=== PATIENT | female | born 2000 | race Caucasian/White ===

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

== ENCOUNTER 2018-02-22 07:11 | Emergency (ER) | payer BC, OTHER, MEDICAID ==
[2018-02-22] MEDS: NS 500 ML IV (07:45)
[2018-02-22] MEDS: METOCLOPRAMIDE INJ 10MG/2ML VIAL (J2765) IV (07:59)
[2018-02-22] MEDS: KETOROLAC 30 MG/ML VIAL (J1885) IV (07:59)
== END 2018-02-22 08:56 | disposition home or self-care (01) ==
LOC: M ED 07:11
DX: G43.109 Migraine with aura, not intractable, without status migrainosus (principal); Z79.3 Long term (current) use of hormonal contraceptives
CPT/HCPCS: J1885

== ENCOUNTER 2018-07-21 20:20 | Emergency (ER) | payer BC, OTHER, MEDICAID ==
[2018-07-21] MEDS: NORCO, ANEXSIA 5/325MG TABLET (HYDROcodone/ACETAMINOPHEN) PO (21:57)
== END 2018-07-21 23:20 | disposition home or self-care (01) ==
LOC: M ED 20:20
DX: M54.9 Dorsalgia, unspecified (principal); V86.69XA Passenger of other special all-terrain or other off-road motor vehicle injured in nontraffic accident, initial encounter
CPT/HCPCS: 70450

== ENCOUNTER 2018-09-07 22:00 | Emergency (ER) | payer BC, OTHER, MEDICAID ==
[2018-09-07 23:42] LABS: BASO # 0.1 10^3/uL (0.0-0.2); BASO % 0.5 % (0.0-1.0); EOS # 0.1 10^3/uL (0.0-0.50); EOS % 1.3 % (0.0-3.0); HEMATOCRIT 41.1 % (36.0-47.0); HEMOGLOBIN 12.3 g/dl (12.0-15.5); IMMATURE GRANULOCYTE % 0.5 % (0-3.0); LYMPH # 2.2 10^3/uL (1.5-6.5); LYMPH % 23.5 % (24.0-44.0); MEAN CORPUSCULAR HEMOGLOBIN 20.4 pg (27.0-33.0); MEAN CORPUSCULAR HGB CONC 29.9 g/dl (32.0-36.5); MEAN CORPUSCULAR VOLUME 68.3 fl (80.0-96.0); NEUTROPHILS # 5.8 10^3/uL (1.8-7.7); NEUTROPHILS % 63.2 % (36.0-66.0); PLATELET COUNT, AUTOMATED 326 10^3/uL (150-450); RED BLOOD COUNT 6.02 10^6/uL (4.00-5.40); RED CELL DISTRIBUTION WIDTH 19.4 % (11.5-14.5); WHITE BLOOD COUNT 9.2 10^3/uL (4.0-10.0)
[2018-09-08 00:04] LABS: ERYTHROCYTE SEDIMENTATION RATE 2 mm/hr (0-20)
[2018-09-08 00:17] LABS: ALBUMIN 4.1 GM/DL (3.2-5.2); ALBUMIN/GLOBULIN RATIO 1.14 (1.00-1.93); ALKALINE PHOSPHATASE 75 U/L (45-117); ALT/SGPT 15 U/L (12-78); ANION GAP 10 MEQ/L (8-16); AST/SGOT 10 U/L (7-37); BILIRUBIN,TOTAL 0.7 MG/DL (0.2-1.0); BLOOD UREA NITROGEN 12 MG/DL (7-18); C REACTIVE PROTEIN QUANTITATIV < 0.30 MG/DL (0.00-0.30); CALCIUM LEVEL 8.5 MG/DL (8.5-10.1); CARBON DIOXIDE LEVEL 24 MEQ/L (21-32); CHLORIDE LEVEL 108 MEQ/L (98-107); CREATININE FOR GFR 0.91 MG/DL (0.55-1.30); GLUCOSE, FASTING 85 MG/DL (70-100); POTASSIUM SERUM 3.5 MEQ/L (3.5-5.1); SODIUM LEVEL 142 MEQ/L (136-145); TOTAL PROTEIN 7.7 GM/DL (6.4-8.2)
[2018-09-08 00:33] LABS: D-DIMER QUANT 656.3 ng/ml (<500)
[2018-09-08] MEDS ORDERED: ISOVUE-370 76% 100ML VIAL (Q9967) As Ordered ×2 (00:50)
[2018-09-08] MEDS: IBUPROFEN 800 MG TAB PO ×2 (02:39)
== END 2018-09-08 02:51 | disposition home or self-care (01) ==
LOC: M ED 09-08 02:51
DX: R07.89 Other chest pain (principal); I45.19 Other right bundle-branch block; G43.909 Migraine, unspecified, not intractable, without status migrainosus; F17.220 Nicotine dependence, chewing tobacco, uncomplicated; Z79.3 Long term (current) use of hormonal contraceptives
CPT/HCPCS: Q9967

== ENCOUNTER → 2018-12-24 | Outpatient (REF) | payer OTHER ==
[~2018-12-24] MED LIST changes: -ACET50TA PO; +AMOX500C PO; +EXCETAB80 PO; +KETO10TAB PO; +MAPA500T2 PO; +NEXP1IMP SC; +REGL10TA6 PO
[2018-12-24 22:28] LABS: CHLAMYDIA DNA AMPLIFICATION NEGATIVE (NEGATIVE); GC DNA AMPLIFICATION NEGATIVE (NEGATIVE)
[2018-12-25 11:04] LABS: HIV 1&2 SCREEN CENTAUR NEGATIVE (NEGATIVE)
== END ==
LOC: M SFHCWAGY 14:26
PROVIDERS: ATTEND Nurse Practitioner Women's Health
DX: Z11.3 Encounter for screening for infections with a predominantly sexual mode of transmission (principal); Z11.4 Encounter for screening for human immunodeficiency virus [HIV]

== ENCOUNTER → 2019-04-09 | Outpatient (REF) | payer OTHER ==
[2019-04-09 19:59] LABS: BASO # 0.1 10^3/uL (0.0-0.2); BASO % 0.6 % (0.0-1.0); EOS # 0.1 10^3/uL (0.0-0.50); EOS % 0.9 % (0.0-3.0); HEMATOCRIT 39.2 % (36.0-47.0); HEMOGLOBIN 12.2 g/dl (12.0-15.5); LYMPH # 2.8 10^3/uL (1.5-6.5); LYMPH % 20.5 % (24.0-44.0); MEAN CORPUSCULAR HEMOGLOBIN 23.1 pg (27.0-33.0); MEAN CORPUSCULAR HGB CONC 31.1 g/dl (32.0-36.5); MEAN CORPUSCULAR VOLUME 74.4 fl (80.0-96.0); NEUTROPHILS # 9.8 10^3/uL (1.8-7.7); NEUTROPHILS % 70.4 % (36.0-66.0); PLATELET COUNT, AUTOMATED 320 10^3/uL (150-450); RED BLOOD COUNT 5.27 10^6/uL (4.00-5.40); WHITE BLOOD COUNT 13.9 10^3/uL (4.0-10.0)
[2019-04-09 20:30] LABS: ALBUMIN 4.3 GM/DL (3.2-5.2); ALT/SGPT 12 U/L (12-78); AMYLASE 54 U/L (25-115); BILIRUBIN,TOTAL 0.5 MG/DL (0.2-1.0); BLOOD UREA NITROGEN 12 MG/DL (7-18); CALCIUM LEVEL 9.2 MG/DL (8.5-10.1); CARBON DIOXIDE LEVEL 26 MEQ/L (21-32); CHLORIDE LEVEL 105 MEQ/L (98-107); CREATININE FOR GFR 0.72 MG/DL (0.55-1.30); GLOMERULAR FILTRATION RATE > 60.0 (>60); GLUCOSE, FASTING 83 MG/DL (70-100); LIPASE 145 U/L (73-393); POTASSIUM SERUM 3.5 MEQ/L (3.5-5.1); SODIUM LEVEL 140 MEQ/L (136-145); TOTAL PROTEIN 7.4 GM/DL (6.4-8.2)
== END ==
LOC: M LABDRWAD 19:22
PROVIDERS: ATTEND Physician Assistant Medical
DX: R10.9 Unspecified abdominal pain (principal)

== ENCOUNTER → 2019-04-09 | Outpatient (REF) | payer OTHER ==
[2019-06-12 13:13] LABS: MONO SCRN NEGATIVE (NEGATIVE)
[2019-06-12 13:14] LABS: C REACTIVE PROTEIN QUANTITATIV < 0.30 MG/DL (0.00-0.30)
== END ==
LOC: M LAB REF 14:44
PROVIDERS: ATTEND Physician Assistant Medical
DX: R10.9 Unspecified abdominal pain (principal)

== ENCOUNTER → 2019-04-10 | Outpatient (CLI) | payer BC, OTHER ==
[~2019-04-10] MED LIST changes: +ISOVUE-370 76% 100ML VIAL (Q9967) As Ordered ONE
--- NOTE | 2019-04-10 17:25 | REP ---
Clinical: Abdominal pain. Technique: Axial contrast enhanced images from the lung bases to the pubic symphysis using 100 ml Isovue 370 intravenous contrast material with coronal and sagittal re-formations. Findings: Lung bases are clear. Visualized heart and pericardium normal. Liver, spleen, pancreas, gallbladder, bilateral adrenal glands and kidneys are normal. The enteric system is without obstruction or acute inflammatory process. Appendicolith identified within otherwise normal appendix. Colonic and sigmoid diverticulosis noted without acute diverticulitis. Pelvis demonstrates normal bladder and age-appropriate uterus/adnexa. Small amount of free fluid in the posterior cul-de-sac likely physiologic and related to menstrual cycle. No free air. No adenopathy. Abdominal aorta and vasculature appears normal. Surrounding musculoskeletal structures intact without focal abnormality. Impression: 1. No acute abdominopelvic pathology appreciated. 2. Small amount of free fluid in the pelvis likely physiologic and related to menstrual cycle. Electronically Signed by Waylon Hendricks MD 04/10/2019 05:17 P
== END ==
LOC: M RAD 16:40
PROVIDERS: ATTEND Physician Assistant Medical
DX: R10.9 Unspecified abdominal pain (principal); K57.30 Diverticulosis of large intestine without perforation or abscess without bleeding
CPT/HCPCS: 74177; Q9967

== ENCOUNTER → 2019-07-03 | Outpatient (REF) | payer OTHER ==
[~2019-07-03] MED LIST changes: -ISOVUE-370 76% 100ML VIAL (Q9967) As Ordered ONE
== END ==
LOC: M LAB REF 12:15
PROVIDERS: ATTEND Physician Assistant
DX: N39.0 Urinary tract infection, site not specified (principal)

== ENCOUNTER → 2020-03-25 | Outpatient (CLI) | payer BC, OTHER | LOC: M LABSMTC 10:00 → EEVIPCON 10:00 | PROVIDERS: ATTEND Family Medicine | DX: Z11.59 Encounter for screening for other viral diseases (principal); Z20.828 Contact with and (suspected) exposure to other viral communicable diseases ==

== ENCOUNTER → 2020-04-15 | Outpatient (CLI) | payer BC, OTHER | LOC: M LABSMTC 10:28 | PROVIDERS: ATTEND Family Medicine | DX: Z03.818 Encounter for observation for suspected exposure to other biological agents ruled out (principal); Z11.59 Encounter for screening for other viral diseases | CPT/HCPCS: C9803; U0003 ==

== ENCOUNTER → 2020-06-22 | Outpatient (REF) | payer OTHER ==
[~2020-06-22] MED LIST changes: +BUTACAP78
[2020-08-07 09:41] LABS: FOLLICLE STIMULATING HORMONE 4.4 mIU/mL; FREE T4 0.92 NG/DL (0.76-1.46); THYROID STIMULATING HORMONE 3.34 uIU/ML (0.358-3.740)
== END ==
LOC: M SFHCWAGY 15:35
PROVIDERS: ATTEND Nurse Practitioner Women's Health
DX: N97.9 Female infertility, unspecified (principal)

== ENCOUNTER → 2020-08-06 | Outpatient (REF) | payer OTHER, MEDICAID ==
[2020-08-06 17:30] LABS: HEMATOCRIT 42.6 % (36.0-47.0); MEAN CORPUSCULAR HEMOGLOBIN 26.1 pg (27.0-33.0); MEAN CORPUSCULAR HGB CONC 32.9 g/dl (32.0-36.5); MEAN CORPUSCULAR VOLUME 79.3 fl (80.0-96.0); PLATELET COUNT, AUTOMATED 344 10^3/uL (150-450); RED BLOOD COUNT 5.37 10^6/uL (4.00-5.40); WHITE BLOOD COUNT 13.2 10^3/uL (4.0-10.0)
[2020-08-06 18:25] LABS: HCG, SERUM QUANTITATIVE 30661 MIU/ML; HEPATITIS C VIRUS ABY INDEX 0.2 INDEX (<0.8); HIV 1&2 SCREEN CENTAUR NEGATIVE (NEGATIVE)
== END ==
LOC: M LAB REF 16:24
PROVIDERS: ATTEND Advanced Practice Midwife
DX: Z32.01 Encounter for pregnancy test, result positive (principal); Z36.89 Encounter for other specified antenatal screening

== ENCOUNTER 2020-09-13 12:50 | Emergency (ER) | payer BC, OTHER, MEDICAID ==
[~2020-09-13] VITALS: Ht 162.6 cm; Wt 54.3 kg
[~2020-09-13 12:50] MED LIST changes: -BUTACAP78
[2020-09-13] MEDS ORDERED: BUTACAP78 (12:57)
[2020-09-13] MEDS ORDERED: NS 1,000 ML IV ONE (14:30)
[2020-09-13 14:52] LABS: BASO # 0.1 10^3/uL (0.0-0.2); BASO % 0.3 % (0.0-1.0); EOS % 0.1 % (0.0-3.0); HEMATOCRIT 39.8 % (36.0-47.0); HEMOGLOBIN 12.9 g/dl (12.0-15.5); LYMPH # 0.9 10^3/uL (1.5-5.0); LYMPH % 5.6 % (24.0-44.0); MEAN CORPUSCULAR HEMOGLOBIN 25.3 pg (27.0-33.0); MEAN CORPUSCULAR HGB CONC 32.4 g/dl (32.0-36.5); MONO # 0.7 10^3/uL (0.0-0.8); MONO % 4.2 % (0.0-5.0); NEUTROPHILS # 14.3 10^3/uL (1.5-8.5); NEUTROPHILS % 88.6 % (36.0-66.0); PLATELET COUNT, AUTOMATED 267 10^3/uL (150-450); WHITE BLOOD COUNT 16.2 10^3/uL (4.0-10.0)
[2020-09-13 15:37] LABS: ALBUMIN 3.6 GM/DL (3.2-5.2); ALT/SGPT 11 U/L (12-78); BILIRUBIN,DIRECT 0.1 MG/DL (0.0-0.2); BILIRUBIN,TOTAL 0.5 MG/DL (0.2-1.0); BLOOD UREA NITROGEN 9 MG/DL (7-18); CALCIUM LEVEL 9.1 MG/DL (8.5-10.1); CARBON DIOXIDE LEVEL 23 MEQ/L (21-32); CHLORIDE LEVEL 109 MEQ/L (98-107); CREATININE FOR GFR 0.68 MG/DL (0.55-1.30); GLOMERULAR FILTRATION RATE > 60.0 (>60); GLUCOSE, FASTING 87 MG/DL (70-100); HCG, SERUM QUANTITATIVE 58733 MIU/ML; LIPASE 106 U/L (73-393); POTASSIUM SERUM 3.5 MEQ/L (3.5-5.1); SODIUM LEVEL 139 MEQ/L (136-145); TOTAL PROTEIN 7.1 GM/DL (6.4-8.2)
[2020-09-13 17:10] LABS: APPEARANCE, URINE CLEAR (CLEAR); BACTERIA, URINE AUTO NEGATIVE (NEGATIVE); BILIRUBIN, URINE AUTO NEGATIVE (NEGATIVE); BLOOD, URINE BLOOD NEGATIVE (NEGATIVE); COLOR, URINE STRAW (YELLOW); GLUCOSE, URINE (UA) AUTO NEGATIVE (NEGATIVE); KETONE, URINE AUTO 2+ mg/dL (NEGATIVE); LEUKOCYTE ESTERASE, URINE AUTO NEGATIVE (NEGATIVE); NITRITE, URINE AUTO NEGATIVE (NEGATIVE); PROTEIN, URINE AUTO NEGATIVE (NEGATIVE); RBC, URINE AUTO 1 /HPF (0-3); SQUAMOUS EPITHELIAL CELL UR AU 2 /HPF (0-6); UROBILINOGEN, URINE AUTO 0.2 mg/dL (0.0-2.0); WBC, URINE AUTO 1 /HPF (0-3)
--- NOTE | 2020-09-13 19:02 | REPVR ---
PROCEDURE INFORMATION: Exam: MR Head Without Contrast Exam date and time: 09/13/2020 6:54 PM Age: 20 years old Clinical indication: Other: Severe headache, right sided numbness, tingling; Patient HX: 11wks TECHNIQUE: Imaging protocol: MR of the head without contrast. COMPARISON: CT Head without contrast 07/21/2018 9:51 PM FINDINGS: Brain: There is no acute intracranial hemorrhage, cerebral edema, or midline shift. No restricted diffusion is present to suggest acute infarction. Cerebral ventricles: No hydrocephalus. Bones/joints: Unremarkable. Paranasal sinuses: Normal as visualized. No acute sinusitis. Mastoid air cells: Normal as visualized. No mastoid effusion. Orbits: Unremarkable. Soft tissues: Unremarkable. IMPRESSION: No acute findings. Electronically signed by: Obey Rice On 09/13/2020 19:01:55 PM
[2020-09-13 19:31] LABS: C REACTIVE PROTEIN QUANTITATIV 0.35 MG/DL (0.00-0.30)
[2020-09-13 19:49] LABS: ERYTHROCYTE SEDIMENTATION RATE 3 mm/hr (0-20)
[2020-09-13 20:09] VITALS: BP 92/62
== END 2020-09-13 20:17 | disposition home or self-care (01) ==
LOC: M ED 12:50
DX: O99.351 Diseases of the nervous system complicating pregnancy, first trimester (principal); G43.909 Migraine, unspecified, not intractable, without status migrainosus; Z3A.11 11 weeks gestation of pregnancy; O99.331 Smoking (tobacco) complicating pregnancy, first trimester; F17.220 Nicotine dependence, chewing tobacco, uncomplicated

== ENCOUNTER → 2020-11-04 | Outpatient (CLI) | payer BC, MEDICAID ==
[~2020-11-04] MED LIST changes: +BUTACAP78
--- NOTE | 2020-11-04 12:39 | REP ---
INDICATION: ANATOMY. COMPARISON: None. TECHNIQUE: Multiple transabdominal ultrasonographic images of the gravid uterus. FINDINGS: There is a single intrauterine gestation in a transverse lie with head to the maternal left. The placenta is fundal and right lateral. There is no placenta previa. The placenta is grade 0 maturity. The placental cord insertion is located centrally on the placenta. The cord insertion is unremarkable. There is a three-vessel umbilical cord. heart rate is 165 beats per minute. Subjectively the amniotic fluid volume is normal. The composite ultrasound gestational age today is 18 weeks 5 days. The IVETH is 04/02/2021. Gestational age by LMP is 18 weeks 6 days with an IVETH of 04/01/2021. weight is 257 g, 0 lb-9 oz. This is the 38th percentile for 18 weeks 6 days. The following anatomic structures are identified and are unremarkable: Cranium, cavum septum pellucidum, falx, intracranial ventricles, choroid plexus, cerebellum, cisterna magna, facial profile, upper lip, four-chamber heart, right and left cardiac ventricular outflow tracts, diaphragm, stomach, right and left kidneys, bladder, right and left upper extremities, right left lower extremities and 3 vessel cord. Suboptimally demonstrated because of position is the spine. A follow-up study dedicated to this structure might be considered. IMPRESSION: anatomy as discussed above. Follow-up study of the spine might be considered. <Electronically signed by Brandon Holguin > 11/04/20 [id number]
== END ==
LOC: M WHC 09:54
PROVIDERS: ATTEND Specialist
DX: Z34.82 Encounter for supervision of other normal pregnancy, second trimester (principal); Z3A.18 18 weeks gestation of pregnancy

== ENCOUNTER → 2020-12-03 | Outpatient (CLI) | payer BC, MEDICAID ==
--- NOTE | 2020-12-05 08:34 | REP ---
INDICATION: F/U ANATOMY COMPARISON: 11/04/2020 TECHNIQUE: Transabdominal obstetrical ultrasound with color Doppler evaluation. FINDINGS: Examination demonstrates a single live intrauterine in transverse presentation. motion is identified by technologist. Placenta is noted anterior and grade 2 without evidence for placenta previa or abruption. Amniotic fluid volume is normal. Cervix measures 3.9 cm in length and appears closed.. Gestational age by LMP 23 weeks 0 days with IVETH 04/01/2021. Gestational age by current measurements 23 weeks 2 days with IVETH 03/30/2021. FHR equals 150 beats per minute. Estimated weight 558 grams (45thpercentile). Anatomical assessment demonstrates normal structures including spine images. A small amount of pericardial fluid is suggested adjacent to the right ventricle which may warrant follow-up. Four-chamber heart views are otherwise normal in appearance. IMPRESSION: 1. Single live intrauterine in transverse lie demonstrating appropriate interval growth. 2. Images of the spine are normal. 3. Cannot exclude very small pericardial effusion adjacent to the right cardiac ventricle. <Electronically signed by Waylon Hendricks > 12/05/20 [id number]
== END ==
LOC: M WHC 11:19
PROVIDERS: ATTEND Obstetrics & Gynecology
DX: Z34.92 Encounter for supervision of normal pregnancy, unspecified, second trimester (principal); Z3A.23 23 weeks gestation of pregnancy

== ENCOUNTER → 2021-01-06 | Outpatient (REF) | payer OTHER, MEDICAID ==
[2021-01-06 15:33] LABS: HEMATOCRIT 38.9 % (36.0-47.0); MEAN CORPUSCULAR HEMOGLOBIN 22.8 pg (27.0-33.0); MEAN CORPUSCULAR HGB CONC 30.8 g/dl (32.0-36.5); MEAN CORPUSCULAR VOLUME 73.8 fl (80.0-96.0); PLATELET COUNT, AUTOMATED 267 10^3/uL (150-450); RED BLOOD COUNT 5.27 10^6/uL (4.00-5.40)
== END ==
LOC: M PLALAB 12:29
PROVIDERS: ATTEND Obstetrics & Gynecology
DX: Z34.82 Encounter for supervision of other normal pregnancy, second trimester (principal); Z3A.00 Weeks of gestation of pregnancy not specified

== ENCOUNTER → 2021-01-07 | Outpatient (CLI) | payer BC, MEDICAID ==
--- NOTE | 2021-01-07 13:11 | REP ---
INDICATION: F/U ANATOMY. COMPARISON: Comparison sonography 03 December 2020.. TECHNIQUE: Transabdominal obstetric sonography. FINDINGS: Scanning through the gravid uterus demonstrates a viable single intrauterine gestation in cephalic lie. motion is observed and heart rate is recorded at 142 beats per minute. A anterior placenta is seen, grade 1, without evidence of placenta previa. Closed cervical length is measured at 3.1 cm transabdominally. No extrauterine abnormality is observed. Amniotic fluid is subjectively normal. A trace of pericardial fluid adjacent to the right ventricle is still seen. The following additional anatomic structures are identified today and felt to be unremarkable: cranium, intracranial contents, face and profile nose and lips, diaphragm, left-sided stomach, kidneys and bladder, spine, three-vessel cord.. Biometry chart: BPD 7.0 cm, 28 weeks 2 days Head circumference 26.4 cm quite Jessica 28 weeks 5 days Abdominal circumference 24.4 cm, 28 weeks 5 days Femur length 5.4 cm, 28 weeks 4 days Humeral length 4.8 cm, 28 weeks 3 days HC AC ratio normal 1.08 Cephalic index normal 0.73 Estimated weight 1256 g, 2 lb 12 oz, 61st percentile for 28 weeks 0 days ABA normal 18.0 cm IMPRESSION: Viable single intrauterine gestation at 28 weeks 4 days by today's composite sonographic criteria. IVETH by today's sonography March 28, 2021. No complication identified. Expected gestational age estimate based on prior sonography is 28 weeks 0 days. IVETH by prior sonography April 01, 2021. A small sliver of fluid is seen in the pericardium. <Electronically signed by Abelardo Pryor > 01/07/21 [id number]
== END ==
LOC: M WHC 08:46
PROVIDERS: ATTEND Obstetrics & Gynecology
DX: Z36.9 Encounter for antenatal screening, unspecified (principal); Z3A.28 28 weeks gestation of pregnancy

== ENCOUNTER → 2021-01-19 | Outpatient (CLI) | payer BC, OTHER, MEDICAID | LOC: M LAB 08:33 | PROVIDERS: ATTEND Specialist | DX: Z34.82 Encounter for supervision of other normal pregnancy, second trimester (principal); Z3A.00 Weeks of gestation of pregnancy not specified ==

== ENCOUNTER → 2021-02-21 | Outpatient (CLI) | payer BC, MEDICAID ==
--- NOTE | 2021-02-21 08:58 | REP ---
INDICATION: F/U ANATOMY COMPARISON: 01/07/2021 TECHNIQUE: Transabdominal obstetrical ultrasound with color Doppler evaluation. FINDINGS: Examination demonstrates a single live intrauterine in cephalic presentation. motion is identified by technologist. Placenta is noted anterior and grade 2 without evidence for placenta previa or abruption. Amniotic fluid volume is normal. Cervix measures 3.5 cm in length and appears closed.. Gestational age by LMP and 1st ultrasound 34 weeks 3 days with IVETH 04/01/2021. Gestational age by current measurements 34 weeks 3 days with IVETH 04/01/2021. FHR equals 132 beats per minute. ABA: 10.2 cm (8.0-24.8) Estimated weight 2418 grams (45thpercentile). Anatomical assessment demonstrates normal structures including evaluation of the heart is again limited due to positioning and a trace amount of pericardial fluid is again suggested. IMPRESSION: Single live intrauterine demonstrating appropriate estimated weight and growth. Limited evaluation of the heart. Small amount of pericardial fluid essentially unchanged. <Electronically signed by Waylon Hendricks > 02/21/21 0822
== END ==
LOC: M WHC 06:52
PROVIDERS: ATTEND Specialist
DX: Z34.83 Encounter for supervision of other normal pregnancy, third trimester (principal); Z3A.34 34 weeks gestation of pregnancy

== ENCOUNTER → 2021-03-01 | Outpatient (REF) | payer OTHER, MEDICAID ==
[~2021-03-01] MED LIST changes: -DIBU10OI TOP; +DIBU28OI2 TOP
== END ==
LOC: M SFHCWAGY 12:42
PROVIDERS: ATTEND Obstetrics & Gynecology
DX: Z87.59 Personal history of other complications of pregnancy, childbirth and the puerperium (principal)

== ENCOUNTER → 2021-03-20 | Outpatient (CLI) | payer BC, OTHER, MEDICAID | LOC: M LABSMTC 08:02 | PROVIDERS: ATTEND Anesthesiology | DX: Z01.812 Encounter for preprocedural laboratory examination (principal); Z11.52 Encounter for screening for COVID-19 ==

== ENCOUNTER 2021-03-25 05:30 | Inpatient (IN) | payer BC, OTHER, MEDICAID ==
[2021-03-25] VITALS (9 sets, daily range): BP systolic 101–122; BP diastolic 55–80
[~2021-03-25] VITALS: Ht 162.6 cm; Wt 66.5 kg
[2021-03-25] MEDS ORDERED: BICITRA 30ML SOLN UDC PO ONE (06:00)
[2021-03-25] MEDS ORDERED: ceFAZolin SOD 2 GM in IV 1 EA IV ONE (06:00)
[2021-03-25] MEDS ORDERED: LR 1,000 ML IV SCH ×2 (06:00→09:05)
[2021-03-25] MEDS ORDERED: LR 800 ML IV ONE (06:00)
[2021-03-25 06:51] LABS: HEMATOCRIT 33.4 % (36.0-47.0); HEMOGLOBIN 9.5 g/dl (12.0-15.5); MEAN CORPUSCULAR HGB CONC 28.4 g/dl (32.0-36.5); MEAN CORPUSCULAR VOLUME 66.7 fl (80.0-96.0); PLATELET COUNT, AUTOMATED 269 10^3/uL (150-450); RED BLOOD COUNT 5.01 10^6/uL (4.00-5.40); WHITE BLOOD COUNT 11.9 10^3/uL (4.0-10.0)
[2021-03-25] MEDS ORDERED: MORPHINE PRES-FREE INJ 10 MG/10 ML VIAL (J2274) As Ordered ONE (07:15)
[2021-03-25] MEDS ORDERED: OXYTOCIN INJ 10 UNITS/ML VIAL (J2590) As Ordered ONE (07:16)
[2021-03-25] MEDS ORDERED: diphenhydrAMINE 50MG/ML VIAL (J1200) IV PRN (07:44)
[2021-03-25] MEDS ORDERED: NALOXONE INJ 0.4MG/1ML VIAL (J2310 PER 1MG) IV PRN ×2 (07:44)
[2021-03-25] MEDS ORDERED: NALBUPHINE HCL 10 MG/ML AMP (J2300) IV PRN (07:44)
[2021-03-25] MEDS ORDERED: ONDANSETRON 4MG/2ML VIAL IV PRN ×3 (07:44→09:05)
[2021-03-25] MEDS ORDERED: METOCLOPRAMIDE INJ 10MG/2ML VIAL (J2765 PER 1) IV PRN ×2 (07:44→09:05)
[2021-03-25] MEDS ORDERED: PHENYLephrine 500MCG 5ML (100MCG/ML) SYRINGE As Ordered ONE (08:00)
[2021-03-25] MEDS ORDERED: dexameTHASONE 4 MG/ML 1ML VIAL (J1100 PER 1MG) As Ordered ONE (08:00)
[2021-03-25] MEDS ORDERED: ONDANSETRON 4MG/2ML VIAL As Ordered ONE (08:00)
[2021-03-25] MEDS ORDERED: KETOROLAC 60MG 2ML VIAL As Ordered ONE (08:00)
[2021-03-25] MEDS ORDERED: fentaNYL 100 MCG/2 ML INJECTION (J3010) As Ordered ONE (08:10)
[2021-03-25] MEDS ORDERED: ePHEDrine SULFATE 25 MG/5 ML(5MG/ML) SYRINGE As Ordered ONE (08:24)
[2021-03-25] MEDS ORDERED: RHOGAM 300 MCG (1500 IU) INJ (J2790) IM SCH (08:45)
[2021-03-25] MEDS ORDERED: PERCOCET 5MG/325MG TAB PO PRN ×3 (08:45→09:05)
[2021-03-25] MEDS ORDERED: MEASLES,MUMPS,RUBELLA VACCINE INJ (MMR-II) (90707) SC SCH (08:45)
[2021-03-25] MEDS ORDERED: OXYTOCIN DRIP 30 UNITS in IV 1 EA IV SCH (08:45)
[2021-03-25] MEDS ORDERED: SIMETHICONE 80MG CHEW TAB PO PRN (08:45)
--- NOTE | 2021-03-25 08:48 | ROOPDOC ---
[facility] Report Of Operation Report of Operation DATE OF PROCEDURE: 03/25/21 Report of operation Preoperative diagnosis: 39 weeks, h/o maternal rectal prolapse Postoperative diagnosis: same Procedure: Primary low transverse section Surgeon: Mirella Orozco M.D. Asst.: Marry Reardon CNM EBL: 500 ml. Urine output: 100 mL's. Findings: 7 lbs. 2 oz. female infant, Apgars 9 and 9 g normal uterus, fallopian tubes, ovaries. Operative summary: Patient taken to the operating room where spinal anesthesia was induced. She was prepped and draped in a sterile fashion in the supine position. A Martin catheter was placed. A Pfannenstiel skin incision was made with scalpel. Fascia was incised and extended bilaterally. The peritoneal cavity was entered. A Mobius retractor was placed. A bladder flap was created. A curvilinear incision was made in lower uterine segment until Clear fluid was noted. The incision was extended manually. The was delivered from the vertex position without difficulty. Cord was double clamped and cut. The infant was handed to the awaiting nurses. . The placenta was expressed. Uterus was closed with O-Vicryl in a running locked fashion. A second imbricating layer of Vicryl was placed. Peritoneum was closed with 2-0 Vicryl a running fashion. Fascia was closed with 0 Vicryl in running fashion. Skin was closed 4-0 Monocryl subcuticular sutures. Sponge, instrument and needle counts were correct. Marry Reardon CNM, assisted with all aspects of the procedure. She helped each layer of the incision and deliver the fetus. MIRELLA OROZCO MD March 25, 2021 08:48
[2021-03-25] MEDS ORDERED: fentaNYL 100 MCG/2 ML INJECTION (J3010) IV PRN (09:05)
[2021-03-25] MEDS ORDERED: OXYTOCIN 30 UNITS IN 0.9% NaCl 500ML IV BAG (J2590) As Ordered ONE (09:18)
[2021-03-25] MEDS: PRENATAL VITAMINS CHEWABLE TABLET PO SCH (10:20)
[2021-03-25] MEDS: LR 1,000 ML IV SCH ×2 (13:13→16:45)
[2021-03-25] MEDS: KETOROLAC 30 MG/ML 1ML VIAL IV SCH ×2 (14:28→20:41)
[2021-03-26] MEDS: LR 1,000 ML IV SCH (00:45)
[2021-03-26 02:00] VITALS: BP 96/52
[2021-03-26] MEDS: KETOROLAC 30 MG/ML 1ML VIAL IV SCH (02:20)
[2021-03-26 06:00] VITALS: BP 98/54
[2021-03-26 07:14] LABS: HEMATOCRIT 25.1 % (36.0-47.0); MEAN CORPUSCULAR HEMOGLOBIN 19.7 pg (27.0-33.0); MEAN CORPUSCULAR HGB CONC 29.5 g/dl (32.0-36.5); MEAN CORPUSCULAR VOLUME 66.9 fl (80.0-96.0); PLATELET COUNT, AUTOMATED 200 10^3/uL (150-450); RED BLOOD COUNT 3.75 10^6/uL (4.00-5.40); WHITE BLOOD COUNT 14.1 10^3/uL (4.0-10.0)
[2021-03-26 07:16] LABS: HEMOGLOBIN 7.4 g/dl (12.0-15.5)
--- NOTE | 2021-03-26 07:27 | IPNPDOC ---
Text Note Date of Service The patient was seen on 03/26/21. NOTE PO #1 Feels well, adequate pain management. Voiding VSS, afebrile, normotensive Breasts soft, Fundus firm, NT Dressing intact, old drainage Lochia rubra light without odor PO #1 Routine care. Anticipate D/C in am VS,Fishbone, I+O VS, Fishbone, I+O Laboratory Tests 03/26/21 06:41 Vital Signs Date Time Temp Pulse Resp B/P (MAP) Pulse Ox O2 Delivery O2 Flow Rate FiO2 03/26/21 06:00 99.0 72 16 98/54 (69) 98 Room Air I&O- Last 24 Hours up to 6 AM 03/26/21 06:00 Intake Total 1400 ml Output Total 3350 ml Balance -1950 ml Ekaterina Perez CNM March 26, 2021 07:27
[2021-03-26 10:00] VITALS: BP 105/58
[2021-03-26] MEDS: FERROUS SULFATE 325MG TAB PO SCH ×2 (10:17→20:33)
[2021-03-26] MEDS: PRENATAL VITAMINS CHEWABLE TABLET PO SCH (10:17)
[2021-03-26] MEDS: IBUPROFEN 800 MG TAB PO SCH ×2 (10:18→19:07)
[2021-03-26 14:00] VITALS: BP 136/74
[2021-03-26 18:00] VITALS: BP 123/71
[2021-03-26 22:00] VITALS: BP_SYST 112; BP_SYST 127; BP_DIAS 71; BP_DIAS 79
[2021-03-27 02:00] VITALS: BP 102/56
[2021-03-27] MEDS: IBUPROFEN 800 MG TAB PO SCH ×2 (02:14→10:30)
[2021-03-27 05:52] VITALS: BP 100/59
[2021-03-27] MEDS: FERROUS SULFATE 325MG TAB PO SCH (08:11)
[2021-03-27] MEDS: PRENATAL VITAMINS CHEWABLE TABLET PO SCH (08:11)
--- NOTE | 2021-03-27 08:26 | DS.PDOC ---
Discharge Summary General Date of Admission March 25, 2021 at 05:30 Date of Discharge 03/27/2021 Attending Physician: MIRELLA OROZCO MD Discharge Summary PROCEDURES PERFORMED DURING STAY: 1 spinal anesthesia 2 section. ADMITTING DIAGNOSES: 1. Intrauterine at 39 weeks with history of rectal prolapse. DISCHARGE DIAGNOSES: 1. Primary section. COMPLICATIONS/CHIEF COMPLAINT: Maternal Rectal Prolapse. HISTORY OF PRESENT ILLNESS: This patient presents at 39 weeks gestation for an elective section. She underwent an uncomplicated section productive of a liveborn infant. Estimated blood loss is 500 mL. Patient did well postoperatively by postoperative day #2 had met all discharge criteria is as discharged home in stable condition. DISCHARGE MEDICATIONS: Please see below. ALLERGIES: Please see below. PHYSICAL EXAMINATION ON DISCHARGE: VITAL SIGNS: Please see below. GENERAL: Well-appearing no acute distress ABDOMINAL EXAMINATION: Soft, appropriately tender. Incision was dressed EXTREMITIES: Negative calf tenderness NEUROLOGICAL EXAMINATION: Grossly intact PSYCHIATRIC EXAMINATION: Appropriate LABORATORY DATA: Please see below. ACTIVITY: Pelvic rest for 6 weeks.. DIET: Regular DISCHARGE PLAN: Home DISCHARGE INSTRUCTIONS: 1. Follow-up in 2 weeks for incision check 2. Remove dressing in 5-7 days 3. Reports severe pain heavy vaginal bleeding fever or incisional issues. DISCHARGE CONDITION: Stable. Vital Signs/I&Os Vital Signs Date Time Temp Pulse Resp B/P (MAP) Pulse Ox O2 Delivery O2 Flow Rate FiO2 03/27/21 05:52 98.1 79 16 100/59 (73) 98 Room Air Discharge Medications No Active Prescriptions or Reported Meds Allergies Coded Allergies: No Known Allergies (Unverified , 05/28/16) JORDEN GONZALEZ MD. March 27, 2021 08:25
[2021-03-27] MEDS ORDERED: IBUP80TA PO (08:27)
[2021-03-27] MEDS ORDERED: PERCOCET PO (08:27)
[2021-03-27 09:52] VITALS: BP 124/62
== END 2021-03-27 10:39 | disposition home or self-care (01) | DRG 540 ==
LOC: EEVIPCON 05:30 → M LDI 05:30 → M OBS 10:01
PROVIDERS: ADMIT Specialist; ATTEND Specialist
PROC: 10D00Z1 Extraction of Products of Conception, Low, Open Approach (ICD-10-PCS; principal; 2021-03-25 07:30)
DX: O34.211 Maternal care for low transverse scar from previous cesarean delivery (principal); Z3A.39 39 weeks gestation of pregnancy; Z37.0 Single live birth

== ENCOUNTER 2021-08-19 17:49 | Emergency (ER) | payer BC, OTHER, MEDICAID ==
[~2021-08-19] VITALS: Ht 162.6 cm; Wt 57.5 kg
[~2021-08-19 17:49] MED LIST changes: +IBUP80TA PO; +PERCOCET PO
[2021-08-19 19:09] LABS: BASO # 0.1 10^3/uL (0.0-0.2); BASO % 0.7 % (0.0-1.0); EOS # 0.1 10^3/uL (0.0-0.5); EOS % 1.2 % (0.0-3.0); HEMATOCRIT 38.7 % (36.0-47.0); HEMOGLOBIN 11.9 g/dl (12.0-15.5); LYMPH # 1.8 10^3/uL (1.5-5.0); MEAN CORPUSCULAR HGB CONC 30.7 g/dl (32.0-36.5); MEAN CORPUSCULAR VOLUME 71.4 fl (80.0-96.0); MONO # 0.7 10^3/uL (0.0-0.8); MONO % 9.4 % (2.0-8.0); NEUTROPHILS # 4.7 10^3/uL (1.5-8.5); NEUTROPHILS % 63.3 % (36.0-66.0); PLATELET COUNT, AUTOMATED 343 10^3/uL (150-450); RED BLOOD COUNT 5.42 10^6/uL (4.00-5.40); WHITE BLOOD COUNT 7.4 10^3/uL (4.0-10.0)
[2021-08-19 19:38] LABS: BLOOD UREA NITROGEN 9 MG/DL (7-18); CALCIUM LEVEL 9.1 MG/DL (8.5-10.1); CARBON DIOXIDE LEVEL 25 MEQ/L (21-32); CHLORIDE LEVEL 110 MEQ/L (98-107); CREATININE FOR GFR 0.77 MG/DL (0.55-1.30); GLOMERULAR FILTRATION RATE > 60.0 (>60); GLUCOSE, FASTING 99 MG/DL (70-100); HCG, SERUM QUANTITATIVE 10 MIU/ML; POTASSIUM SERUM 3.5 MEQ/L (3.5-5.1); SODIUM LEVEL 143 MEQ/L (136-145)
[2021-08-19 20:01] VITALS: BP 116/63
== END 2021-08-19 20:01 | disposition home or self-care (01) ==
LOC: M ED 17:49
DX: N93.9 Abnormal uterine and vaginal bleeding, unspecified (principal); F17.220 Nicotine dependence, chewing tobacco, uncomplicated

== ENCOUNTER → 2021-08-22 | Outpatient (CLI) | payer BC, OTHER, MEDICAID | LOC: M PLALAB 12:10 | PROVIDERS: ATTEND Specialist | DX: N93.9 Abnormal uterine and vaginal bleeding, unspecified (principal) ==

== ENCOUNTER → 2022-03-16 | Outpatient (REF) | payer BC, OTHER, MEDICAID | LOC: M LAB REF 09:51 | PROVIDERS: ATTEND Pediatrics | DX: J06.9 Acute upper respiratory infection, unspecified (principal) ==

== ENCOUNTER 2022-05-17 13:50 | Emergency (ER) | payer BC, OTHER ==
[~2022-05-17] VITALS: Ht 162.6 cm; Wt 52.0 kg
[2022-05-17 16:30] VITALS: BP 105/65
== END 2022-05-17 16:32 | disposition home or self-care (01) ==
LOC: M ED 13:50
DX: S00.83XA Contusion of other part of head, initial encounter (principal); V49.49XA Driver injured in collision with other motor vehicles in traffic accident, initial encounter; Y92.410 Unspecified street and highway as the place of occurrence of the external cause; F17.220 Nicotine dependence, chewing tobacco, uncomplicated

== ENCOUNTER → 2022-09-01 | Outpatient (REF) ==
[~2022-09-01] MED LIST changes: +ETON68IM SC; -NEXP1IMP SC
== END ==
LOC: M EMP 09:46
PROVIDERS: ATTEND Family Medicine
DX: Z20.822 Contact with and (suspected) exposure to COVID-19 (principal); Z53.8 Procedure and treatment not carried out for other reasons

== ENCOUNTER → 2022-12-28 | Outpatient (CLI) | payer OTHER ==
[~2022-12-28] MED LIST changes: +AMBI5TAB PO
== END ==
LOC: M WHC 11:51
PROVIDERS: ATTEND Obstetrics & Gynecology
DX: O34.211 Maternal care for low transverse scar from previous cesarean delivery (principal); Z3A.15 15 weeks gestation of pregnancy

== ENCOUNTER 2022-12-29 08:06 | Inpatient (IN) | payer OTHER ==
[2022-12-29] VITALS (10 sets, daily range): BP systolic 110–145; BP diastolic 54–92
[~2022-12-29] VITALS: Ht 162.6 cm; Wt 57.7 kg
[~2022-12-29 08:06] MED LIST changes: -AMBI5TAB PO
[2022-12-29] MEDS ORDERED: RHOGAM 300MCG (1500IU) INJ IM SCH (08:50)
[2022-12-29 09:20] LABS: BASO % 0.3 % (0.0-1.0); EOS # 0.1 10^3/uL (0.0-0.5); EOS % 0.7 % (0.0-3.0); HEMATOCRIT 38.1 % (36.0-47.0); HEMOGLOBIN 11.8 g/dl (12.0-15.5); LYMPH # 1.3 10^3/uL (1.5-5.0); LYMPH % 14.9 % (24.0-44.0); MEAN CORPUSCULAR HEMOGLOBIN 22.8 pg (27.0-33.0); MEAN CORPUSCULAR VOLUME 73.6 fl (80.0-96.0); MONO # 0.5 10^3/uL (0.0-0.8); MONO % 5.4 % (2.0-8.0); NEUTROPHILS # 6.8 10^3/uL (1.5-8.5); NEUTROPHILS % 78.1 % (36.0-66.0); PLATELET COUNT, AUTOMATED 305 10^3/uL (150-450); RED BLOOD COUNT 5.18 10^6/uL (4.00-5.40); WHITE BLOOD COUNT 8.8 10^3/uL (4.0-10.0)
[2022-12-29 09:47] LABS: THYROID STIMULATING HORMONE 2.989 uIU/ML (0.55-4.78); THYROXINE (T4) 12.7 UG/DL (4.5-10.9)
[2022-12-29 09:53] LABS: INR 1.03; PARTIAL THROMBOPLASTIN TIME 24.4 SECONDS (24.8-34.2); PROTHROMBIN TIME 13.7 SECONDS (12.5-14.5)
[2022-12-29] MEDS ORDERED: OXYTOCIN 30UNITS IN 0.9% NaCl 500ML IV BAG As Ordered ONE (18:14)
[2022-12-29] MEDS ORDERED: IBUPROFEN 600MG TAB PO PRN (20:35)
[2022-12-29] MEDS ORDERED: METHYLERGONOVINE MALEATE 0.2MG/ML 1ML VIAL IM ONE (20:35)
[2022-12-29] MEDS ORDERED: ACETAMINOPHEN 500 MG TAB PO PRN (20:35)
[2022-12-29] MEDS ORDERED: KETOROLAC 30 MG/ML 1ML VIAL IV ONE (20:40)
[2022-12-29] MEDS ORDERED: KETOROLAC 30 MG/ML 1ML VIAL As Ordered ONE (20:47)
[2022-12-30] MEDS ORDERED: zolPIDEM TARTRATE 5 MG TAB PO ONE (01:00)
[2022-12-30] MEDS ORDERED: IBUPROFEN 600MG TAB PO PRN (03:00)
[2022-12-30 06:33] VITALS: BP 147/72
[2022-12-30] MEDS ORDERED: AMBI5TAB PO (15:53)
[2023-01-01 16:08] LABS: BETA-2 GLYCOPROTEIN I ABY IGA <9 (0-25); BETA-2 GLYCOPROTEIN I ABY IGG <9 (0-20); BETA-2 GLYCOPROTEIN I ABY IGM <9 (0-32); CARDIOLIPIN IGA ANTIBODY <9 APL U/mL (0-11); CARDIOLIPIN IGG ANTIBODY <9 GPL U/mL (0-14); CARDIOLIPIN IGM ANTIBODY <9 MPL U/mL (0-12)
[2023-01-05 11:26] LABS: DRVV SCREEN 35.6 SEC
[2023-01-05 11:43] LABS: PTT LUPUS TYPE ANTICOAG SCREEN 0.9 (0-1.2)
== END 2022-12-30 10:06 | disposition home or self-care (01) | DRG 805 ==
LOC: M LDI 08:06
PROVIDERS: ADMIT Advanced Practice Midwife; ATTEND Advanced Practice Midwife
PROC: 10E0XZZ Delivery of Products of Conception, External Approach (ICD-10-PCS; principal; 2022-12-30)
DX: O69.1XX0 Labor and delivery complicated by cord around neck, with compression, not applicable or unspecified (principal); Z37.1 Single stillbirth; Q79.3 Gastroschisis; Z3A.20 20 weeks gestation of pregnancy; D18.1 Lymphangioma, any site; O26.899 Other specified pregnancy related conditions, unspecified trimester; O35.10X0 Maternal care for (suspected) chromosomal abnormality in fetus, unspecified, not applicable or unspecified

== ENCOUNTER → 2023-09-07 | Outpatient (CLI) | payer OTHER ==
[~2023-09-07] MED LIST changes: +AMBI5TAB PO
== END ==
LOC: M PLALAB 14:27
PROVIDERS: ATTEND Obstetrics & Gynecology
DX: N97.0 Female infertility associated with anovulation (principal)

== ENCOUNTER → 2024-03-19 | Outpatient (CLI) | payer OTHER ==
[2024-03-19 13:16] LABS: HEMATOCRIT 42.2 % (36.0-47.0); MEAN CORPUSCULAR HEMOGLOBIN 26.2 pg (27.0-33.0); MEAN CORPUSCULAR HGB CONC 33.2 g/dl (32.0-36.5); MEAN CORPUSCULAR VOLUME 78.9 fl (80.0-96.0); PLATELET COUNT, AUTOMATED 291 10^3/uL (150-450); RED BLOOD COUNT 5.35 10^6/uL (4.00-5.40); WHITE BLOOD COUNT 11.4 10^3/uL (4.0-10.0)
[2024-03-19 14:11] LABS: HIV 1&2 SCREEN NEGATIVE (NEGATIVE)
[2024-03-19 14:18] LABS: HEPATITIS C VIRUS ABY INDEX < 0.02 INDEX (<0.8)
[2024-03-19 15:04] LABS: GC DNA AMPLIFICATION NEGATIVE (NEGATIVE)
== END ==
LOC: M PLALAB 10:08
PROVIDERS: ATTEND Obstetrics & Gynecology
DX: Z34.81 Encounter for supervision of other normal pregnancy, first trimester (principal)

== ENCOUNTER → 2024-05-21 | Outpatient (CLI) | payer OTHER | LOC: M WHC 09:41 | PROVIDERS: ATTEND Obstetrics & Gynecology | DX: O34.211 Maternal care for low transverse scar from previous cesarean delivery (principal); Z3A.18 18 weeks gestation of pregnancy ==

== ENCOUNTER 2024-06-11 16:17 | Outpatient (CLI) | payer OTHER ==
[~2024-06-11] VITALS: Ht 162.6 cm; Wt 62.0 kg
[2024-06-11 16:33] VITALS: BP 119/72
[2024-06-11] MEDS ORDERED: HOME MED LIST COMPLETE! XX SCH (16:35)
== END 2024-06-11 17:40 | disposition home or self-care (01) ==
LOC: M LDO 16:17
PROVIDERS: ATTEND Advanced Practice Midwife
DX: O26.892 Other specified pregnancy related conditions, second trimester (principal); O34.219 Maternal care for unspecified type scar from previous cesarean delivery; N89.8 Other specified noninflammatory disorders of vagina; Z3A.21 21 weeks gestation of pregnancy
CPT/HCPCS: 59025; G0463

== ENCOUNTER → 2024-06-30 | Outpatient (CLI) | payer OTHER | LOC: M WHC 06:49 | PROVIDERS: ATTEND Obstetrics & Gynecology | DX: O34.211 Maternal care for low transverse scar from previous cesarean delivery (principal); Z3A.24 24 weeks gestation of pregnancy ==

== ENCOUNTER → 2024-07-23 | Outpatient (CLI) | payer OTHER ==
[2024-07-23 15:19] LABS: HEMATOCRIT 35.6 % (36.0-47.0); HEMOGLOBIN 10.8 g/dl (12.0-15.5); MEAN CORPUSCULAR HEMOGLOBIN 22.7 pg (27.0-33.0); MEAN CORPUSCULAR HGB CONC 30.3 g/dl (32.0-36.5); MEAN CORPUSCULAR VOLUME 74.8 fl (80.0-96.0); PLATELET COUNT, AUTOMATED 252 10^3/uL (150-450); RED BLOOD COUNT 4.76 10^6/uL (4.00-5.40); WHITE BLOOD COUNT 12.3 10^3/uL (4.0-10.0)
[2024-07-23 15:20] LABS: GLUCOSE CHALLENGE TEST 1 HOUR 105 MG/DL (LESS THAN 140)
[2024-07-23 15:55] LABS: HIV 1&2 SCREEN NEGATIVE (NEGATIVE)
[2024-07-23 16:03] LABS: HEPATITIS C VIRUS ABY INDEX 0.02 INDEX (<0.8)
[2024-07-23 17:07] LABS: GC DNA AMPLIFICATION NEGATIVE (NEGATIVE)
== END ==
LOC: M PLALAB 11:33
PROVIDERS: ATTEND Obstetrics & Gynecology
DX: O34.211 Maternal care for low transverse scar from previous cesarean delivery (principal); Z3A.00 Weeks of gestation of pregnancy not specified

== ENCOUNTER 2024-08-13 17:29 | Outpatient (CLI) | payer OTHER ==
[~2024-08-13] VITALS: Ht 162.6 cm; Wt 66.9 kg
[2024-08-13] MEDS ORDERED: ACET500P3 PO (17:45)
[2024-08-13] MEDS ORDERED: PRENTAB9 PO (17:45)
[2024-08-13 17:49] VITALS: BP 144/84
[2024-08-13] MEDS ORDERED: HOME MED LIST COMPLETE! XX SCH (17:50)
[2024-08-13 18:07] VITALS: BP 129/84; O2SAT 99
[2024-08-13 18:22] VITALS: BP 121/73
[2024-08-13 18:25] LABS: HEMATOCRIT 33.9 % (36.0-47.0); HEMOGLOBIN 10.6 g/dl (12.0-15.5); MEAN CORPUSCULAR HEMOGLOBIN 22.4 pg (27.0-33.0); MEAN CORPUSCULAR HGB CONC 31.3 g/dl (32.0-36.5); MEAN CORPUSCULAR VOLUME 71.5 fl (80.0-96.0); PLATELET COUNT, AUTOMATED 270 10^3/uL (150-450); RED BLOOD COUNT 4.74 10^6/uL (4.00-5.40); WHITE BLOOD COUNT 12.2 10^3/uL (4.0-10.0)
[2024-08-13 18:37] VITALS: BP 112/73
[2024-08-13 18:37] LABS: LDH LACTATE DEHYDROGENASE 134 U/L (120-246)
[2024-08-13 18:38] LABS: ALT/SGPT 9 U/L (7.0-40); AST/SGOT < 8 U/L (<34); BILIRUBIN,TOTAL 0.3 MG/DL (0.3-1.2); CREATININE FOR GFR 0.55 MG/DL (0.55-1.30); GLOMERULAR FILTRATION RATE > 60.0 (>60)
[2024-08-13 18:46] LABS: TOTAL PROTEIN,RANDOM URINE 6.4 MG/DL (0.0-14.0)
[2024-08-13 18:51] LABS: CREATININE,RANDOM URINE 76.7 MG/DL
== END 2024-08-13 19:00 | disposition home or self-care (01) ==
LOC: M LDO 17:29
PROVIDERS: ATTEND Advanced Practice Midwife
DX: O26.893 Other specified pregnancy related conditions, third trimester (principal); O34.219 Maternal care for unspecified type scar from previous cesarean delivery; O09.293 Supervision of pregnancy with other poor reproductive or obstetric history, third trimester; R03.0 Elevated blood-pressure reading, without diagnosis of hypertension; Z3A.30 30 weeks gestation of pregnancy
CPT/HCPCS: 36415; 59025; 82247; 82570; 83615; 84156; 84450; 84460; 84550; 85027; G0463

== ENCOUNTER 2024-09-01 05:53 | Outpatient (CLI) | payer OTHER ==
[~2024-09-01] VITALS: Ht 162.6 cm; Wt 68.9 kg
[~2024-09-01 05:53] MED LIST changes: +ACET500P3 PO; +PRENTAB9 PO
[2024-09-01 06:06] VITALS: BP 121/73
[2024-09-01] MEDS: ONDANSETRON 4MG TAB PO ONE (07:13)
[2024-09-01] MEDS: METOCLOPRAMIDE 10MG TAB PO ONE (07:13)
[2024-09-01] MEDS: diphenhydrAMINE 25MG CAP PO ONE (07:13)
[2024-09-01 07:14] VITALS: BP 110/73
[2024-09-01 10:14] VITALS: BP 115/65
[2024-09-01] MEDS: PERCOCET 5MG/325MG TAB PO ONE (10:55)
[2024-09-01] MEDS: LR 1,000 ML IV ONE (13:02)
[2024-09-01 14:42] VITALS: BP 122/68
[2024-09-01] MEDS: KETOROLAC 30 MG/ML 1ML VIAL IV ONE (14:54)
[2024-09-01 19:36] VITALS: BP 111/59
[2024-09-01 20:08] VITALS: BP 122/59
[2024-09-01] MEDS: PROMETHAZINE 25MG/ML 1ML VIAL IV ONE (20:09)
[2024-09-01] MEDS: BUTORPHANOL 2 MG/ML 1ML VIAL IV ONE (20:09)
== END 2024-09-02 05:20 | disposition home or self-care (01) ==
LOC: M LDO 05:53
PROVIDERS: ATTEND Obstetrics & Gynecology
DX: O99.353 Diseases of the nervous system complicating pregnancy, third trimester (principal); O34.219 Maternal care for unspecified type scar from previous cesarean delivery; O09.293 Supervision of pregnancy with other poor reproductive or obstetric history, third trimester; G43.019 Migraine without aura, intractable, without status migrainosus; Z3A.33 33 weeks gestation of pregnancy
CPT/HCPCS: 59025; 70450; 87486; 87581; 87633; 87798; 96374; 96376; G0463; J0595; J1885; J2550

== ENCOUNTER → 2024-09-22 | Outpatient (REF) | payer OTHER | LOC: M SFHCWAGY 17:04 | PROVIDERS: ATTEND Obstetrics & Gynecology | DX: Z36.89 Encounter for other specified antenatal screening (principal); Z3A.36 36 weeks gestation of pregnancy ==

== ENCOUNTER 2024-10-10 05:17 | Inpatient (IN) | payer OTHER ==
[~2024-10-10] VITALS: Ht 162.6 cm; Wt 72.3 kg
[2024-10-10] VITALS (8 sets, daily range): BP systolic 103–118; BP diastolic 56–76; TEMP 96.9; O2SAT 96–100
[2024-10-10] MEDS: LR 1,000 ML IV SCH ×2 (05:25→07:55)
[2024-10-10 05:59] LABS: HEMOGLOBIN 10.1 g/dl (12.0-15.5); MEAN CORPUSCULAR HEMOGLOBIN 20.6 pg (27.0-33.0); MEAN CORPUSCULAR HGB CONC 30.6 g/dl (32.0-36.5); MEAN CORPUSCULAR VOLUME 67.3 fl (80.0-96.0); PLATELET COUNT, AUTOMATED 237 10^3/uL (150-450); WHITE BLOOD COUNT 11.7 10^3/uL (4.0-10.0)
[2024-10-10] MEDS ORDERED: ACET-897 PO (06:07)
[2024-10-10] MEDS ORDERED: HOME MED LIST COMPLETE! XX SCH (06:10)
[2024-10-10] MEDS: LACTATED RINGER'S 1000 ML IV STA (06:48)
[2024-10-10 07:05] LABS: HEPATITIS C VIRUS ABY INDEX 0.03 INDEX (<0.8)
[2024-10-10] MEDS: BICITRA 30ML SOLN UDC PO ONE (07:13)
[2024-10-10] MEDS: ceFAZolin SOD 2 GM in IV 1 EA IV ONE (07:13)
[2024-10-10] MEDS ORDERED: OXYTOCIN INJ 10UNITS/ML 1ML VIAL As Ordered ONE (07:25)
[2024-10-10] MEDS ORDERED: PHENYLephrine 500MCG 5ML (100MCG/ML) SYRINGE As Ordered ONE (07:26)
[2024-10-10] MEDS ORDERED: ONDANSETRON 4MG 2ML VIAL As Ordered ONE (07:26)
[2024-10-10] MEDS ORDERED: KETOROLAC 60MG 2ML VIAL As Ordered ONE (07:26)
[2024-10-10] MEDS ORDERED: RHOGAM 300MCG (1500IU) INJ IM SCH (07:55)
[2024-10-10] MEDS ORDERED: ONDANSETRON 4MG 2ML VIAL IV PRN ×2 (07:55→09:20)
[2024-10-10] MEDS ORDERED: CALCIUM CARBONATE 500 MG CHEW U/D PO PRN (07:55)
[2024-10-10] MEDS ORDERED: MORPHINE PRES-FREE INJ 10 MG/10 ML VIAL As Ordered ONE (08:11)
[2024-10-10] MEDS ORDERED: ATROPINE SULF 0.4 MG/ML 1ML VIAL As Ordered ONE (08:17)
[2024-10-10] MEDS ORDERED: ePHEDrine SULFATE 25 MG/5 ML(5MG/ML) SYRINGE As Ordered ONE (08:17)
[2024-10-10] MEDS ORDERED: KETAMINE HCL 200MG/20ML VIAL As Ordered ONE (08:28)
[2024-10-10] MEDS ORDERED: MIDAZOLAM INJ 2MG/2ML VIAL As Ordered ONE (08:31)
[2024-10-10] MEDS ORDERED: OXYTOCIN 30UNITS IN 0.9% NaCl 500ML IV BAG As Ordered ONE (08:43)
[2024-10-10] MEDS: PRENATAL VITAMINS CHEWABLE TABLET PO SCH (09:00)
[2024-10-10] MEDS: FERROUS SULFATE 325MG TAB PO SCH (09:00)
[2024-10-10] MEDS: DOCUSATE SODIUM 100MG CAPSULE PO SCH (09:00)
[2024-10-10] MEDS: SLF 3 ML SYR IV SCH (09:20)
[2024-10-10] MEDS ORDERED: diphenhydrAMINE 50MG/ML VIAL IV PRN (09:20)
[2024-10-10] MEDS ORDERED: METOCLOPRAMIDE INJ 10MG/2ML VIAL IV PRN (09:20)
[2024-10-10] MEDS ORDERED: oxyCODONE 5MG TAB PO PRN (09:20)
[2024-10-10] MEDS ORDERED: MEPERIDINE 25 MG/ML 1ML VIAL IV PRN (09:20)
[2024-10-10] MEDS ORDERED: NALOXONE INJ 0.4MG/1ML VIAL IV PRN (09:20)
[2024-10-10] MEDS ORDERED: NALBUPHINE HCL 10 MG/ML 1ML AMP IV PRN (09:20)
[2024-10-10] MEDS ORDERED: **NOTE PATIENT COMMENT** MISC XX SCH (09:20)
[2024-10-10] MEDS: OXYTOCIN DRIP 30 UNITS in IV 1 EA IV SCH (09:29)
[2024-10-10] MEDS: KETOROLAC 30 MG/ML 1ML VIAL IV SCH (15:10)
[2024-10-11 02:00] VITALS: BP 110/55; O2SAT 98
[2024-10-11 06:00] VITALS: BP 122/64; O2SAT 99
[2024-10-11 06:52] LABS: HEMATOCRIT 26.5 % (36.0-47.0); MEAN CORPUSCULAR HEMOGLOBIN 21.1 pg (27.0-33.0); MEAN CORPUSCULAR HGB CONC 30.6 g/dl (32.0-36.5); PLATELET COUNT, AUTOMATED 245 10^3/uL (150-450); RED BLOOD COUNT 3.84 10^6/uL (4.00-5.40); WHITE BLOOD COUNT 16.8 10^3/uL (4.0-10.0)
[2024-10-11 06:53] LABS: HEMOGLOBIN 8.1 g/dl (12.0-15.5)
[2024-10-11] MEDS: SIMETHICONE 80MG CHEW TAB PO PRN (09:22)
[2024-10-11] MEDS: PERCOCET 5MG/325MG TAB PO PRN ×2 (09:23→15:23)
[2024-10-11 10:00] VITALS: BP 119/60; O2SAT 98
[2024-10-11] MEDS: IBUPROFEN 800 MG TAB PO SCH (12:12)
[2024-10-11 14:00] VITALS: BP 115/69; O2SAT 99
[2024-10-11] MEDS: MOM 30ML SUSPENSION UDC PO PRN (15:23)
[2024-10-11 18:00] VITALS: BP 106/57; O2SAT 97
[2024-10-11 22:12] VITALS: BP 124/58; O2SAT 98
[2024-10-12 02:11] VITALS: BP 87/54; O2SAT 97
[2024-10-12 05:29] VITALS: BP 103/64; O2SAT 98
[2024-10-12] MEDS: FIORICET TAB PO PRN (08:32)
[2024-10-12] MEDS: MEASLES,MUMPS,RUBELLA VACCINE INJ (MMR-II) SC.IMMUN ONE (09:00)
[2024-10-12 10:00] VITALS: BP 119/61; O2SAT 100
[2024-10-12] MEDS ORDERED: COLA100C5 PO (10:40)
[2024-10-12] MEDS ORDERED: IBUP80TA PO (10:40)
[2024-10-12] MEDS ORDERED: OXYC1TAB23 PO (10:40)
== END 2024-10-12 13:09 | disposition home or self-care (01) | DRG 788 ==
LOC: M LDI 05:17 → M OBS 10:15
PROVIDERS: ADMIT Obstetrics & Gynecology; ATTEND Obstetrics & Gynecology
PROC: 10D00Z1 Extraction of Products of Conception, Low, Open Approach (ICD-10-PCS; principal; 2024-10-10 07:30)
DX: O34.211 Maternal care for low transverse scar from previous cesarean delivery (principal); Z37.0 Single live birth; Z3A.39 39 weeks gestation of pregnancy; O32.2XX0 Maternal care for transverse and oblique lie, not applicable or unspecified

== ENCOUNTER → 2025-11-04 | Outpatient (REF) | payer OTHER ==
[~2025-11-04] MED LIST changes: +ACET-897 PO; -AMBI5TAB PO; +COLA100C5 PO; +OXYC1TAB23 PO; +ZOLP-532 PO
== END ==
LOC: M PLALAB 10:10
PROVIDERS: ATTEND Obstetrics & Gynecology
DX: Z34.80 Encounter for supervision of other normal pregnancy, unspecified trimester (principal)

== ENCOUNTER → 2025-11-04 | Outpatient (CLI) | payer OTHER ==
[2025-11-04 13:51] LABS: PLATELET COUNT, AUTOMATED 299 10^3/uL (150-450)
[2025-11-04 14:28] LABS: HIV 1&2 SCREEN NEGATIVE (NEGATIVE)
[2025-11-04 14:37] LABS: HEPATITIS C VIRUS ABY INDEX 0.03 INDEX (<0.8)
[2025-11-04 14:49] LABS: Trichomonas vaginalis (AMP) NOT DETECTED (NEGATIVE)
[2025-11-04 15:14] LABS: GC DNA AMPLIFICATION NEGATIVE (NEGATIVE)
== END ==
LOC: M PLALAB 10:22
PROVIDERS: ATTEND Obstetrics & Gynecology
DX: Z34.80 Encounter for supervision of other normal pregnancy, unspecified trimester (principal)